=== PATIENT | male | born 1945 | race Caucasian/White ===

== ENCOUNTER 2018-12-25 11:27 | Outpatient (CLI) | payer MEDICARE, SELFPAY ==
[2018-12-25 13:46] LABS: TSH 2.74 uIU/mL (0.358-3.74); Vitamin B12 394 pg/mL (193-986)
== END 2018-12-25 11:47 ==
PROVIDERS: PCP Emergency Medicine; Visit Provider Emergency Medicine
DX: E03.9 Hypothyroidism, unspecified (principal); G62.9 Polyneuropathy, unspecified
CPT/HCPCS: 36415; 82607; 84443

== ENCOUNTER → 2019-03-13 09:51 | Outpatient (BNVA) | payer MEDICARE, OTHER, SELFPAY | PROVIDERS: PCP Emergency Medicine; Referring Provider Emergency Medicine; Visit Provider Physical Therapy Assistant | DX: Z12.11 Encounter for screening for malignant neoplasm of colon (principal); Z86.010 Personal history of colon polyps; Z80.0 Family history of malignant neoplasm of digestive organs; Z95.5 Presence of coronary angioplasty implant and graft ==

== ENCOUNTER 2019-07-08 09:03 | Outpatient (CLI) | payer MEDICARE, OTHER, SELFPAY ==
[2019-07-08 14:01] LABS: Anion Gap 6.3 mmol/L (3-11); BUN 25 mg/dL (7-18); CO2 31.7 mmol/L (21.0-32.0); CREATININE 1.58 mg/dL (0.70-1.30); Calcium 9.1 mg/dL (8.5-10.1); Calculated LDL 62 mg/dL; Chloride 107 mmol/L (98-107); Cholesterol 120 mg/dL (50-200); Estimated GFR 43.09 (mL/min/1.73m2); Glucose 82 mg/dL (70-100); HDL Cholesterol 34 mg/dL (40-60); Potassium 4.4 mmol/L (3.5-5.1); Sodium 145 mmol/L (136-145); Triglyceride 123 mg/dL (30-150)
== END 2019-07-08 09:23 ==
PROVIDERS: PCP Emergency Medicine; Visit Provider Emergency Medicine
DX: I10 Essential (primary) hypertension (principal)
CPT/HCPCS: 36415; 80048; 80061

== ENCOUNTER 2020-06-30 12:19 | Outpatient (REF) | payer MEDICARE, OTHER, SELFPAY ==
[2020-06-30 22:22] LABS: Anion Gap 7.2 mmol/L (3-11); BUN 31 mg/dL (7-18); CO2 28.8 mmol/L (21.0-32.0); CREATININE 1.52 mg/dL (0.70-1.30); Calcium 9.1 mg/dL (8.5-10.1); Calculated LDL 74 mg/dL (<100); Chloride 107 mmol/L (98-107); Cholesterol 127 mg/dL (<200); Estimated GFR 44.93 (mL/min/1.73m2); Glucose 91 mg/dL (74-106); HDL Cholesterol 35 mg/dL (40-60); Potassium 4.1 mmol/L (3.5-5.1); Sodium 143 mmol/L (136-145); Triglyceride 93 mg/dL (<150)
== END 2020-06-30 12:39 ==
LOC: LBN 12:19
PROVIDERS: PCP Emergency Medicine; Visit Provider Emergency Medicine
DX: I10 Essential (primary) hypertension (principal)
CPT/HCPCS: 80048; 80061

== ENCOUNTER 2021-07-27 11:03 | Outpatient (REF) | payer MEDICARE, OTHER, SELFPAY ==
--- NOTE | 2021-07-27 10:00 | SKI_PTH ---
PATIENT: Александр [place] LOC: N U#:[id number] AGE/SX: 76/M ROOM: RE07/27/[address]: Ben Agudelo DO : 1945 BED: DIS: 07/27/2021 SPEC #: [id number] RECD: 07/27/21 18:09 STATUS: MECHELLE REAmalia #: [id number] BRONWYN: 07/27/21 10:[address]: Ben Agudelo DEPT: Surgical Specimen RECD BY: Maria Teresa Zheng Tissues: 1 - SKIN BIOPSY(SHAVE/PUNCH) Procedures: SKIN LEVEL 4 Comments: [id number]
[2021-07-27 19:30] LABS: Anion Gap 6.4 mmol/L (3-11); BUN 32 mg/dL (7-18); CO2 27.6 mmol/L (21.0-32.0); CREATININE 1.6 mg/dL (0.70-1.30); Calcium 8.7 mg/dL (8.5-10.1); Calculated LDL 74 mg/dL (<100); Chloride 107 mmol/L (98-107); Cholesterol 127 mg/dL (<200); Estimated GFR 42.24 (mL/min/1.73m2); Glucose 92 mg/dL (74-106); HDL Cholesterol 35 mg/dL (40-60); Potassium 4.2 mmol/L (3.5-5.1); Sodium 141 mmol/L (136-145); Triglyceride 92 mg/dL (<150)
== END 2021-07-27 11:04 | disposition home or self-care (01) ==
LOC: LBN 11:03
PROVIDERS: PCP Emergency Medicine; Visit Provider Emergency Medicine
DX: L82.1 Other seborrheic keratosis; I10 Essential (primary) hypertension; I25.10 Atherosclerotic heart disease of native coronary artery without angina pectoris; Z98.61 Coronary angioplasty status
CPT/HCPCS: 80048; 80061; 88305

== ENCOUNTER 2022-08-18 01:50 | Outpatient (CLI) | payer MEDICARE, SELFPAY ==
[2022-08-18 16:00] LABS: Abs Immature Grans 0.02 10^3/uL (0.0-0.06); Absolute Basophil Count 0.06 10^3/uL (0.0-0.2); Absolute Eosinophil Count 0.33 10^3/uL (0.0-0.7); Absolute Lymphocyte Count 2.02 10^3/uL (1.2-3.4); Absolute Monocyte Count 0.72 10^3/uL (0.1-0.8); Absolute Neutrophil Count 5.13 10^3/uL (1.2-6.7); Basophils % 0.7; HCT 39.5 % (40.0-50.0); HGB 13.5 g/dL (13.5-17.5); Immature Grans % 0.2; Lymphocytes % 24.4; MCH 30.8 pg (27.0-33.0); MCHC 34.2 % (32.0-36.0); MCV 90 fL (80-95); MPV 9.3 fL (8.0-11.0); Monocytes % 8.7; Platelet Count 161 10^3/uL (130-400); RBC 4.39 10^6/uL (4.36-5.78); RDW 12.5 % (11.8-14.1); RDW-SD 41.1 fL; WBC 8.28 10^3/uL (4.4-10.8)
[2022-08-18 16:52] LABS: COMMENT (LAB VIEW ONLY) 152.27 mg/dL
[2022-08-18 16:59] LABS: ALT 23 U/L (16-63); AST 27 U/L (15-37); Albumin 3.8 g/dL (3.4-5.0); Alkaline Phosphatase 87 U/L (46-116); Anion Gap 6.3 mmol/L (3-11); BUN 49 mg/dL (7-18); Bilirubin, Total 0.5 mg/dL (0.2-1.0); CO2 29.7 mmol/L (21.0-32.0); CREATININE 1.8 mg/dL (0.70-1.30); Calcium 8.9 mg/dL (8.5-10.1); Chloride 106 mmol/L (98-107); Estimated GFR 38.29 (mL/min/1.73m2); Glucose 95 mg/dL (74-106); Magnesium 2.2 mg/dL (1.8-2.4); PHOSPHORUS 3.5 mg/dL (2.6-4.7); Sodium 142 mmol/L (136-145); Total Protein 7.1 g/dL (6.4-8.2)
[2022-08-18 17:03] LABS: Bilirubin Negative (Negative); Blood Negative (Negative); Clarity Clear (Clear); Glucose Negative (Negative); Ketones Negative (Negative); Leukocyte Esterase Negative (Negative); Nitrite Negative (Negative); Specific Gravity >= 1.030 (1.005-1.025); Urobilinogen 0.2 EU/dL (Up TO 0.2)
[2022-08-18 17:35] LABS: Vitamin D 25 Total 54.3 ng/mL (30-100)
[2022-08-21 08:48] LABS: Parathyroid Hormone,Intact 37 pg/mL (19-88)
== END 2022-08-18 01:51 | disposition home or self-care (01) ==
LOC: LBO 01:51
PROVIDERS: PCP Family Medicine; Visit Provider Family Medicine
DX: E11.9 Type 2 diabetes mellitus without complications (principal); N18.30 Chronic kidney disease, stage 3 unspecified; R30.0 Dysuria
CPT/HCPCS: 36415; 80053; 82306; 81003; 82043; 82570; 83735; 83970; 84100; 85025

== ENCOUNTER 2022-08-24 01:20 | Outpatient (CLI) | payer MEDICARE, SELFPAY ==
--- NOTE | 2022-08-24 06:45 | DI.NM_ITS ---
APPROVED REPORT Exam: Exercise Treadmill Patient Location: Out-Patient Room/Bed: Stress Nurse: Brittany Llanos RN Ordering Provider:SAL LINK MD, Contact Number: [phone] BMI: 25.79 Baseline Rhythm: Sinus Bradycardia Indications: LIGHTHEADED AFTER EXERCISE, CORONARY ARTERY DISEASE Medical History Medical History: ASCVD s/p stent placement, HTN, HLD, COVID Cardiac Medications: Nitro SL, Losartan, Hydrochlorothiazide, Atorvastatin, Aspirin, Allergies: Lisinopril, Contrast Media Cardiac Risk Factors: HTN, Hyperlipidemia, CVD, FHX of CAD Previous Cardiac Procedures: PCI w/ stent (2011) Pretest Chest Pain Characteristics: No chest pain Exercise History: Physically active Physical Disabilities: None Lung Sounds: Clear to auscultation Heart Sounds: Regular Stress Test Details Test: Exercise stress testing was performed using a Александр protocol. Nuclear Acquisition: Rest Tc-99m/Stress Tc-99m 1 day Rest Isotope: Tc-99m Sestamibi. Dose: 9.0 Date: 08/24/2022 Injection Time: 0935 Stress Isotope: Tc-99m Sestamibi. Dose: 30.0 Date: 08/24/2022 Injection Time: 1100 HR Resting HR Supine: 52 bpm Max Heart Rate (APMHR): 143.528513 bpm Resting HR Standin bpm Target HR (85% APMHR): 121.906983 bpm Max HR Achieved: 150 bpm % of APMHR: 104.90 Recovery HR: 67 bpm HR response to stress: Normal HR response to stress BP Resting BP Supine: 170/80 mmHg Resting BP Standin/78 mmHg Max BP: 210/70 mmHg Recovery BP: 138/70 mmHg BP response to stress: Normal blood pressure response to stress. ECG Resting ECG: Sinus Bradycardia Ectopy: none Stress ECG: Sinus Tachycardia ST Change: No significant ST segment changes noted Arrhythmia: PACs, PVC couplet Recovery ECG: Sinus Rhythm Recovery ST Change: No significant ST segment changes noted Recovery Arrhythmia: PACs, PVCs, PVC triplet Clinical Reason for Termination: Fatigue Stress Symptoms: General Fatigue Exercise duration: 09 min36 sec Highest Stage Reached: Stage 4: 4.2 mph at 16% grade. Exercise capacity: 11.04 METs Skinner Treadmill Score: 10 Rate Pressure Product: [id number] Stress ECG Conclusion 1. The resting electrocardiogram was within normal limits 2. Patient exercised on the Александр protocol and completed a workload of 11.04 METS, limited by fatigue 3. Normal heart rate and blood pressure response to exercise. Patient achieved 100% of predicted hea rt rate for age 4. There was no electrocardiographic evidence of myocardial ischemia 5. There were no significant dysrhythmias 6. See MPI report Skinner Treadmill Score is 10 which is Low risk. Stress Test Summary STAGE Time (mins) Speed (mph) Grade (%) HR BP SpO2 SYMPTOMS METS Supine 52 170/80 Standing 53 160/78 96 1 3 1.7 10 102 180/74 96 4.5 2 6 2.5 12 125 190/70 7 3 9 3.4 14 136 196/80 95 10 1 min recovery 124 210/70 3 min recovery 82 162/70 6 min recovery 67 138/70 Александр did not endorse lightheadedness during or after treadmill test. MPI Conclusion Normal myocardial perfusion without evidence of ischemia or prior infarction EF is 58%, wall motion is normal Radiologist Interpretation Radiologist agrees with Coagulator's Interpretation. Radiologist Interpretation by: Gonzlao Jacob MD Interpretation Date/Time: 08/24/2022 16:03:44
== END 2022-08-24 01:40 ==
LOC: DI 01:21
PROVIDERS: PCP Family Medicine; Visit Provider Family Medicine
DX: I25.10 Atherosclerotic heart disease of native coronary artery without angina pectoris (principal); Z98.61 Coronary angioplasty status
CPT/HCPCS: 78452; 93016; 93018; 93017

== ENCOUNTER 2023-02-21 10:27 | Outpatient (CLI) | payer MEDICARE, SELFPAY ==
[2023-02-21 12:42] LABS: Abs Immature Grans 0.01 10^3/uL (0.0-0.06); Absolute Basophil Count 0.04 10^3/uL (0.0-0.2); Absolute Eosinophil Count 0.13 10^3/uL (0.0-0.7); Absolute Lymphocyte Count 1.52 10^3/uL (1.2-3.4); Absolute Monocyte Count 0.46 10^3/uL (0.1-0.8); Absolute Neutrophil Count 3.78 10^3/uL (1.2-6.7); Basophils % 0.7; Eosinophils % 2.2; HCT 39.6 % (40.0-50.0); HGB 13.6 g/dL (13.5-17.5); Immature Grans % 0.2; Lymphocytes % 25.6; MCH 30.8 pg (27.0-33.0); MCHC 34.3 % (32.0-36.0); MCV 90 fL (80-95); Monocytes % 7.7; Neutrophils % 63.6; Platelet Count 154 10^3/uL (130-400); RBC 4.41 10^6/uL (4.36-5.78); RDW 12.1 % (11.8-14.1); RDW-SD 39.9 fL; WBC 5.94 10^3/uL (4.4-10.8)
[2023-02-21 12:57] LABS: ALT 23 U/L (16-63); AST 23 U/L (15-37); Albumin 3.6 g/dL (3.4-5.0); Alkaline Phosphatase 83 U/L (46-116); Anion Gap 5.9 mmol/L (3-11); BUN 42 mg/dL (7-18); Bilirubin, Total 0.7 mg/dL (0.2-1.0); CO2 29.1 mmol/L (21.0-32.0); CREATININE 1.8 mg/dL (0.70-1.30); Calcium 9.5 mg/dL (8.5-10.1); Chloride 105 mmol/L (98-107); Estimated GFR 38.29 (mL/min/1.73m2); Glucose 93 mg/dL (74-106); Magnesium 1.9 mg/dL (1.8-2.4); Potassium 4.1 mmol/L (3.5-5.1); Sodium 140 mmol/L (136-145); Total Protein 6.9 g/dL (6.4-8.2)
[2023-02-21 13:27] LABS: Ferritin 122 ng/mL (26-388)
[2023-02-21 14:21] LABS: Vitamin D 25 Total 56.8 ng/mL (30-100)
[2023-02-21 22:14] LABS: Parathyroid Hormone,Intact 23 pg/mL (19-88)
[2023-02-26 14:31] LABS: 1,25-Dihydroxyvitamin D 13 pg/mL (18-64)
== END 2023-02-21 10:28 | disposition home or self-care (01) ==
LOC: LOS 10:28
PROVIDERS: PCP Family Medicine; Visit Provider Family Medicine
DX: N18.32 Chronic kidney disease, stage 3b (principal); Z00.00 Encounter for general adult medical examination without abnormal findings; I10 Essential (primary) hypertension
CPT/HCPCS: 36415; 80048; 80053; 82306; 82652; 82728; 83735; 83970; 84100; 85025

== ENCOUNTER 2023-08-28 10:03 | Outpatient (CLI) | payer MEDICARE, SELFPAY ==
[2023-08-28 10:04] LABS: Anion Gap 4.3 mmol/L (3-11); BUN 41 mg/dL (7-18); CO2 30.7 mmol/L (21.0-32.0); CREATININE 1.8 mg/dL (0.70-1.30); Calcium 9.6 mg/dL (8.5-10.1); Chloride 104 mmol/L (98-107); Estimated GFR 38.05 (mL/min/1.73m2); Glucose 93 mg/dL (74-106); Potassium 3.9 mmol/L (3.5-5.1); Sodium 139 mmol/L (136-145)
--- OUTSIDE RECORDS SUMMARY | 2023-08-28 10:05 | XMS_ITS | Continuity of Care Document ---
Author Name Unknown Organization [facility] Address [address] [place] [address] Care Team Providers Care Neurosurgical Nurse Practitioner Name Role Phone Ben Agudelo Primary Care Physician Encounter [facility] Date(s): 12/04/22 - 12/04/[address] [id number] Discharge Disposition: Home or Self Care Attending Physician: Devendra Abbasi MD Admitting Physician: Devendra Abbasi MD Referring Physician: Ben Agudelo DO Allergies, Adverse Reactions, Alerts Substance Reaction Severity Status HOUSE DUST Unknown Active POLLEN EXTRACTS Unknown Active lisinopril Unknown Active iodinated radiocontrast dyes Unknown Active Functional Status 12/04/22 ADLs Independent Family Member Travel History No recent t ravel Recent Travel History No recent travel Other exposure to Infectious Disease Non e 11/28/22 Living Situation Home independently Medications aspirin 81 mg oral capsule 0 Refill(s) Start Date: 11/27/22 Status: Ordered atorvastatin 20 mg oral tablet 20 mg = 1 tab, Oral, Daily, # 30 tab, 0 Refill(s) Start Date: 11/27/22 Status: Ordered hydroCHLOROthiazide 25 mg oral tablet 25 mg = 1 tab, Oral, BID, 0 Refill(s) Start Date: 11/27/22 Status: Ordered losartan 100 mg oral tablet 100 mg = 1 tab, Oral, Daily, # 30 tab, 0 Refill(s) Start Date: 11/27/22 Status: Ordered multivitamin adult, oral tablet 1 tab, Oral, Daily, # 30 tab, 0 Refill(s) Start Date: 11/29/22 Status: Ordered nitroglycerin 0.4 mg sublingual tablet 0.4 mg = 1 tab, SL, every 5 min, PRN as needed for chest pain, # 100 tab, 0 Refill(s) Start Date: 11/27/22 Status: Ordered Vitamin D3 0 Refill(s) Start Date: 11/27/22 Status: Ordered Problem List Condition Confirmation Course Effective Dates Status H ealth Status Informant BPH - benign prostatic hyperplasia Confirmed Active Chronic kidney disease stage 3 Confirmed Active Conductive hearing loss Confirmed Active Coronary arteriosclerosis after percutaneous coronary angioplasty Confirmed Active Hyperlipidemia Confirmed Active Hypertension Confirmed Active Neuropathy Confirmed Active Sensorineural hearing loss, bilateral Confirmed Active Procedures Procedure Date Related Diagnosis Body Site Status Colonoscopy 07/23/19 Completed Stent placement 03/07/12 Completed EGD (esophagogastroduodenosc opy) gastric outlet reduction 11/20/07 Complet ed Bunionectomy Completed Vital Signs Most recent to oldest [Reference Range]: 1 2 3 Temperature Oral [35.8-37.3 Deg C] 36.7 Deg C (12/04/22 11:59 AM) Temperature Temporal Artery [36-38 Deg C] 36.6 Deg C (12/04/22 3:00 PM) Temperature Temporal Artery (DegF) [97.3-100 Deg F] 97.88 Deg F (12/04/22 3:00 PM) Peripheral Pulse Rate [60-100 bpm] 46 bpm *LOW* (12/04/22 3:00 PM) 42 bpm *LOW* (12/04/22 2:45 PM) 42 bpm *LOW* (12/04/22 2:40 PM) Heart Rate Monitored [60-100 bpm] 44 bpm *LOW* (12/04/22 3:00 PM) 43 bpm *LOW* (12/04/22 2:45 PM) 45 bpm *LOW* (12/04/22 2:40 PM) Respiratory Rate [12-24 br/min] 15 br/min (12/04/22 3:00 PM) 16 br/min (12/04/22 2:45 PM) 16 br/min (12/04/22 2:40 PM) Blood Pressure [90-140/60-90 mmHg] 124/66mmHg (12/04/22 3:00 PM) 110/64mmHg (12/04/22 2:45 PM) 108/60mmHg (12/04/22 2:40 PM) Mean Arterial Pressure, Cuff [65-140 mmHg] 85 mmHg (12/04/22 3:00 PM) 79 mmHg (12/04/22 2:45 PM) 76 mmHg (12/04/22 2:40 PM) Weight 69.300 kg (12/04/22 11:59 AM) Weight Dosing 69.300 kg (12/04/22 11:59 AM) Height 163.000 cm (12/04/22 11:59 AM) Height/Length Dosing 163.000 cm (12/04/22 11:59 AM) Body Mass Index 26.080 kg/m2 (12/04/22 11:59 AM) Social History Social History Type Response Smoking Status Smoking tobacco use: Never tobacco user;Never entered on: 11/27/22 Sex Male Hospital Discharge Instructions Patient Education 12/04/2022 13:48:10 ss colonoscopy discharge instructions COLONOSCOPY / SIGMOIDOSCOPY Following day: Return to full activity, including work. Diet: Eat and drink normally, unless instructed otherwise. Treatment for common after affects: Mild abdominal pain, bloating, or excessive gas: Rest, eat lightly and use a heating pad. Symptoms to watch for and report to your physician: SEVERE abdominal pain or bloating. Fever within 24 hours after procedure. A large amount of rectal bleeding. (A small amount of blood from the rectum is not serious, especially if hemorrhoids are present.) If you have had a Colonoscopy: Do not attempt to drive a vehicle or operate power equipment of any kind for at least 24 hours after discharge from the hospital. Do not consume alcoholic beverages or other mood-altering drugs on the day of surgery. Mild irritation at needle site: Apply warm, moist pack to area for 20 minutes four times a day for 2-3 days. Call physician if persistent redness and/or drainage at needle site. In the event of any problems after surgery, do not hesitate to contact your doctor, [facility] , or the Emergency Room at [phone]. Diagnosis: No polyps seen today. Repeat in 5 years this is up to you and your primary provider Doctor: Jin Follow Up Appointment: 5 years Discharge instructions * Tianna Richardson: PERFORM Event Display: Discharge Instructions Authored Date: [id number] LEON SINGER :1945 Age:77 years Sex:Male Visit Date:12/04/2022 Primary Care Physician: Ben Agudelo DO Hospital Discharge Instructions We would like to thank you for allowing us to assist you with your healthcare needs. The following includes patient education materials and information regarding your injury/illness. After you leave the hospital, you may get your health information including your test results, physician notes and discharge information by accessing your Patient Portal. Your Summary Your Care Team Admitting Physician - Jin BILLY, Devendra Truong MD Attending Physician - Devendra Abbasi MD Primary Care Physician - Ben Agudelo DO Referring Physician - Ben Agudelo DO Discharge Vitals Temperature??(Oral) 98.1 ??F (36.7 ??C) Heart Rate??(Monitored) 50 Respiratory Rate?? 20 Blood Pressure?? 128/63?? Height?? 64.17 in (163.000 cm) Weight?? 152.81 lb (69.300 kg) BMI?? 26.080 Education Materials COLONOSCOPY / SIGMOIDOSCOPY ? Following day: Return to full activity, including work. Diet: Eat and drink normally, unless instructed otherwise. ? Treatment for common after affects: Mild abdominal pain, bloating, or excessive gas: Rest, eat lightly and use a heating pad. ? Symptoms to watch for and report to your physician: SEVERE abdominal pain or bloating. ? Fever within 24 hours after procedure. ? A large amount of rectal bleeding. (A small amount of blood from the rectum is not serious, especially if hemorrhoids are present.) ? If you have had a Colonoscopy: Do not attempt to drive a vehicle or operate power equipment of any kind for at least 24 hours after discharge from the hospital. ? Do not consume alcoholic beverages or other mood-altering drugs on the day of surgery. ? Mild irritation at needle site: Apply warm, moist pack to area for 20 minutes four times a day for 2-3 days. ? Call physician if persistent redness and/or drainage at needle site. ? In the event of any problems after surgery, do not hesitate to contact your doctor, [facility] , or the Emergency Room at [phone]. Diagnosis: No polyps seen today. Repeat in 5 years this is up to you and your primary provider Doctor: Jin Follow Up Appointment: 5 years Patient Name:ENMANUELLEON POON I have received this information and my questions have been answered. Patient/Phone Technician Name: Patient/Phone Technician Signature: Relationship to Patient: Witness Name/Signature: Date: Electronically Signed on: 12/04/2022 14:50 ESTSigned by:PAF History and physical note * Jin WVDevendra Ames MD: PERFORM Event Display: History and Physical Authored Date: [id number] LEON SINGER :1945 Age:77 years Sex:Male Visit Date:12/04/2022 Primary Care Physician: Ben Agudelo DO History of Present Illness 77-year-old male seen for follow-up colonoscopy.?? The patient's had prior colon polyps and his mother of colon cancer. Review of Systems No history of chest pain, pressure,??he has had a previous??stent placed.?? No cough, sputum production or wheezing.?? No history of abdominal pain or rectal bleeding. Physical Exam Vitals & Measurements T:??36.7?C ??(Oral)?? HR:??50??(Monitored)?? RR:??20?? BP:??128/63?? SpO2:??99%?? HT:??163.000??cm?? WT:??69.300??kg?? BMI:??26.080?? O2 Therapy:??Room air?? Skin warm and dry, neck supple there is no cervical adenopathy. ??Lungs clear, heart regular. ??Abdomen soft. Assessment/Plan Ordered: Valium, 2.5 mg, IV Push, Soln, every 2 min for 10 times, PRN sedation, First Dose: 12/04/22 13:16:00 EST, Stop Date: Limited # of times, Physician Stop, Routine fentaNYL, 25 mcg = 0.5 mL, IV Push, Soln, every 2 min for 12 times, PRN sedation, First Dose: 12/04/22 13:16:00 EST, Stop Date: Limited # of times, Physician Stop, Routine flumazenil, 0.2 mg, IV Push, Soln, As Directed for 10 times, PRN sedation, Administer over: 15 seconds, First Dose: 12/04/22 13:16:00 EST, Stop Date: Limited # of times, Physician Stop, Routine Lactated Ringers Injection 500 mL, Total Volume (mL): 500, 500 mL, Soln, IV, 30 mL/hr, Start Date: 12/04/22 11:55:00 EST, Populate Charting Weight From Order lidocaine 1% injectable solution, 5 mg 0.5 mL, Intradermal, Soln, As Directed, PRN other (see comment), First Dose: 12/04/22 11:55:00 EST, Routine Versed, 1 mg = 1 mL, IV Push, Soln, every 2 min for 10 times, PRN sedation, First Dose: 12/04/22 13:16:00 EST, Stop Date: Limited # of times, Physician Stop, Routine naloxone, 0.08 mg = 0.2 mL, IV Push, Soln, every 2 min for 10 times, PRN sedation, First Dose: 12/04/22 13:16:00 EST, Stop Date: Limited # of times, Physician Stop, Routine Communication Order, 12/04/22 13:16:00 EST, Nursing to administer and doses via IV push per verbal instruction from MD at bedside immediately prior and during conscious sedation procedure. NPO, 12/04/22 11:55:00 EST, Constant Indicator Obtain Surgical Consent, 12/04/22 11:55:00 EST, colonoscopy Oxygen Therapy, Stop date 12/04/22 13:16:00 EST, Simple Mask to maintain SpO2 of 90% or greater Surgical Pathology [facility], AP Specimen, Routine Collect, 12/04/22 13:16:00 EST, every morning, Lab Collect, Print Label Vital Signs, 12/04/22 13:16:00 EST, every 5 min, Every 5 minutes with cardiac and respiratory assessment To proceed with a follow-up colonoscopy. ??We discussed the procedure, indications and risk. ??Consent is signed and on the chart. Problem List/Past Medical History Ongoing BPH - benign prostatic hyperplasia Chronic kidney disease stage 3 Conductive hearing loss Coronary arteriosclerosis after percutaneous coronary angioplasty Hyperlipidemia Hypertension Neuropathy Sensorineural hearing loss, bilateral Historical No qualifying data Procedure/Surgical History ???Colonoscopy (07/24/2019)???Stent placement (03/08/2012)???EGD (esophagogastroduodenoscopy) gastric outlet reduction (11/21/2007)???Bunionectomy Medications Inpatient fentaNYL, 25 mcg= 0.5 mL, IV Push, every 2 min, PRN flumazenil, 0.2 mg, IV Push, As Directed, PRN Lactated Ringers Injection 500 mL, 500 mL, IV lidocaine 1% injectable solution, 5 mg= 0.5 mL, Intradermal, As Directed, PRN naloxone, 0.08 mg= 0.2 mL, IV Push, every 2 min, PRN Valium, 2.5 mg, IV Push, every 2 min, PRN Versed, 1 mg= 1 mL, IV Push, every 2 min, PRN Home aspirin 81 mg oral capsule atorvastatin 20 mg oral tablet, 20 mg= 1 tab, Oral, Daily hydroCHLOROthiazide 25 mg oral tablet, 25 mg= 1 tab, Oral, BID losartan 100 mg oral tablet, 100 mg= 1 tab, Oral, Daily multivitamin adult, oral tablet, 1 tab, Oral, Daily nitroglycerin 0.4 mg sublingual tablet, 0.4 mg= 1 tab, SL, every 5 min, PRN Vitamin D3 Allergies HOUSE DUST POLLEN EXTRACTS iodinated radiocontrast dyes lisinopril Social History Alcohol Current, Wine, 1-2 times per month Electronic Cigarette/Vaping Electronic Cigarette Use: Never. Substance Use Never Tobacco Never tobacco user Tobacco Use:. Never Smokeless Tobacco use:. Family History Cardiovascular disease: Father. Diabetes mellitus: Father. Hyperlipidemia: Father. Hypertension: Father. Stroke: Mother. Electronically Signed on 12/04/22 02:09 PM Jin [facility] CAROLINADevendra MD * Kala Sanchez: PERFORM Event Display: History and Physical Authored Date: [id number] LEON SINGER :1945 Age:77 years Sex:Male Primary Care Physician: Ben Agudelo DO History of colon polyps. Family history of colon cancer. Previous colonoscopies and path reports have been scanned into [employer] Electronically Signed on 11/28/22 01:19 PM Kala Sanchez Patient Care team information Care Team Personnel Name: Ben Agudelo DO Position: No Access Member Role: Primary Care Physician Address: Address: [facility] [address] [place] [id number]- Care Team Related Persons Name: PORTIA SINGER
== END 2023-08-28 10:04 | disposition home or self-care (01) ==
LOC: LBO 10:04
PROVIDERS: PCP Family Medicine; Visit Provider Family Medicine
DX: I10 Essential (primary) hypertension (principal); N18.32 Chronic kidney disease, stage 3b
CPT/HCPCS: 36415; 80048

== ENCOUNTER 2024-03-18 05:14 | Outpatient (CLI) | payer MEDICARE, SELFPAY ==
[2024-03-18 09:11] LABS: ALT 26 U/L (16-63); AST 23 U/L (15-37); Albumin 3.8 g/dL (3.4-5.0); Alkaline Phosphatase 82 U/L (46-116); Anion Gap 6.6 mmol/L (3-11); BUN 45 mg/dL (7-18); Bilirubin, Total 0.7 mg/dL (0.2-1.0); CO2 31.4 mmol/L (21.0-32.0); CREATININE 1.9 mg/dL (0.70-1.30); Calcium 9.4 mg/dL (8.5-10.1); Chloride 106 mmol/L (98-107); Estimated GFR 35.66 (mL/min/1.73m2); Glucose 75 mg/dL (74-106); PHOSPHORUS 3.6 mg/dL (2.6-4.7); Potassium 4.4 mmol/L (3.5-5.1); Sodium 144 mmol/L (136-145); Total Protein 7.2 g/dL (6.4-8.2)
[2024-03-18 09:53] LABS: Ferritin 97 ng/mL (26-388); Vitamin D 25 Total 65.6 ng/mL (30-100)
[2024-03-18 20:25] LABS: Parathyroid Hormone,Intact 33 pg/mL (19-88)
[2024-03-19 18:54] LABS: Cystatin C, S 1.88 mg/L; eGFR by Cystatin C 31 mL/min/BSA (>60)
== END 2024-03-18 05:15 | disposition home or self-care (01) ==
PROVIDERS: PCP Family Medicine; Visit Provider Family Medicine
DX: N18.32 Chronic kidney disease, stage 3b (principal)
CPT/HCPCS: 36415; 80053; 82306; 82610; 82728; 83970; 84100; 84550

== ENCOUNTER 2024-04-07 15:25 | Outpatient (CLI) | payer MEDICARE, SELFPAY ==
[2024-04-07 14:54] LABS: Abs Immature Grans 0.01 10^3/uL (0.0-0.06); Absolute Basophil Count 0.04 10^3/uL (0.0-0.2); Absolute Monocyte Count 0.58 10^3/uL (0.1-0.8); Basophils % 0.6 %; HCT 37.3 % (40.0-50.0); HGB 12.7 g/dL (13.5-17.5); Immature Grans % 0.2 %; Lymphocytes % 24.1 %; MCH 30.8 pg (27.0-33.0); MCV 90 fL (80-95); MPV 8.6 fL (8.0-11.0); Monocytes % 8.7 %; Neutrophils % 63.4 %; Platelet Count 128 10^3/uL (130-400); RBC 4.13 10^6/uL (4.36-5.78); RDW 12.3 % (11.8-14.1); RDW-SD 40.4 fL; WBC 6.63 10^3/uL (4.4-10.8)
[2024-04-07 15:37] LABS: ALT 25 U/L (16-63); AST 23 U/L (15-37); Albumin 3.5 g/dL (3.4-5.0); Alkaline Phosphatase 71 U/L (46-116); Anion Gap 7.7 mmol/L (3-11); BUN 36 mg/dL (7-18); Bilirubin, Total 0.66 mg/dL (0.2-1.0); CO2 26.3 mmol/L (21.0-32.0); CREATININE 1.9 mg/dL (0.70-1.30); Calcium 8.8 mg/dL (8.5-10.1); Chloride 109 mmol/L (98-107); Estimated GFR 35.66 (mL/min/1.73m2); Glucose 115 mg/dL (74-106); Potassium 4.3 mmol/L (3.5-5.1); Sodium 143 mmol/L (136-145); Total Protein 6.5 g/dL (6.4-8.2); Uric Acid 6.3 mg/dL (3.5-7.2)
[2024-04-07 16:39] LABS: COMMENT (LAB VIEW ONLY) 209.78 mg/dL; PROTEIN 13.3 mg/dL; Prot/Crea Ur Ratio 0.06
== END 2024-04-07 15:26 | disposition home or self-care (01) ==
LOC: LBO 15:26
PROVIDERS: PCP Family Medicine; Visit Provider Family Medicine
DX: M1A.9XX0 Chronic gout, unspecified, without tophus (tophi) (principal); E79.0 Hyperuricemia without signs of inflammatory arthritis and tophaceous disease; N18.32 Chronic kidney disease, stage 3b
CPT/HCPCS: 36415; 80053; 82565; 84156; 84550; 85025

== ENCOUNTER 2024-09-05 12:24 | Outpatient (CLI) | payer MEDICARE, SELFPAY ==
[2024-09-05 13:02] LABS: Abs Immature Grans 0.02 10^3/uL (0.0-0.06); Absolute Basophil Count 0.05 10^3/uL (0.0-0.2); Absolute Eosinophil Count 0.11 10^3/uL (0.0-0.7); Absolute Lymphocyte Count 1.72 10^3/uL (1.2-3.4); Absolute Neutrophil Count 4.28 10^3/uL (1.2-6.7); Basophils % 0.7 %; Eosinophils % 1.6 %; HCT 40.1 % (40.0-50.0); HGB 13.4 g/dL (13.5-17.5); Immature Grans % 0.3 %; Lymphocytes % 25.4 %; MCH 30.9 pg (27.0-33.0); MCHC 33.4 % (32.0-36.0); MCV 93 fL (80-95); MPV 9.2 fL (8.0-11.0); Monocytes % 8.8 %; Neutrophils % 63.2 %; Platelet Count 145 10^3/uL (130-400); RBC 4.33 10^6/uL (4.36-5.78); RDW-SD 41.1 fL; WBC 6.78 10^3/uL (4.4-10.8)
[2024-09-05 13:25] LABS: Iron 60 ug/dL (65-175); Total Iron Binding Capacity 244 ug/dL (250-450); Transferrin Sat 25 % (20-55)
[2024-09-05 13:38] LABS: Anion Gap 8.1 mmol/L (3-11); BUN 42 mg/dL (7-18); CO2 29.9 mmol/L (21.0-32.0); CREATININE 1.9 mg/dL (0.70-1.30); Calcium 9.8 mg/dL (8.5-10.1); Chloride 109 mmol/L (98-107); Estimated GFR 35.44 (mL/min/1.73m2); Ferritin 140 ng/mL (26-388); Glucose 105 mg/dL (74-106); Potassium 4.2 mmol/L (3.5-5.1); Sodium 147 mmol/L (136-145)
[2024-09-07 14:34] LABS: Anaplasma phagocytophilum Ab <1:64 titer (<1:64)
== END 2024-09-05 12:25 | disposition home or self-care (01) ==
LOC: LBO 12:25
PROVIDERS: PCP Family Medicine; Visit Provider Family Medicine
DX: N18.32 Chronic kidney disease, stage 3b (principal); Z20.9 Contact with and (suspected) exposure to unspecified communicable disease; I10 Essential (primary) hypertension
CPT/HCPCS: 36415; 80048; 86666; 82728; 83540; 83550; 85025

== ENCOUNTER 2025-03-06 00:52 | Outpatient (CLI) | payer MEDICARE, SELFPAY ==
[2025-03-06 08:14] LABS: Abs Immature Grans 0.02 10^3/uL (0.0-0.06); Absolute Basophil Count 0.05 10^3/uL (0.0-0.2); Absolute Eosinophil Count 0.27 10^3/uL (0.0-0.7); Absolute Lymphocyte Count 1.47 10^3/uL (1.2-3.4); Absolute Monocyte Count 0.53 10^3/uL (0.1-0.8); Absolute Neutrophil Count 4.08 10^3/uL (1.2-6.7); Basophils % 0.8 %; Eosinophils % 4.2 %; HCT 39.2 % (40.0-50.0); HGB 13.1 g/dL (13.5-17.5); Immature Grans % 0.3 %; Lymphocytes % 22.9 %; MCH 30.2 pg (27.0-33.0); MCHC 33.4 % (32.0-36.0); MCV 90 fL (80-95); MPV 8.8 fL (8.0-11.0); Monocytes % 8.3 %; Neutrophils % 63.5 %; Platelet Count 148 10^3/uL (130-400); RBC 4.34 10^6/uL (4.36-5.78); RDW 12.1 % (11.8-14.1); RDW-SD 39.8 fL; WBC 6.42 10^3/uL (4.4-10.8)
[2025-03-06 08:53] LABS: COMMENT (LAB VIEW ONLY) 177.79 mg/dL; PROTEIN 9.8 mg/dL; Prot/Crea Ur Ratio 0.05
[2025-03-06 09:00] LABS: ALT 24 U/L (16-63); AST 29 U/L (15-37); Albumin 3.6 g/dL (3.4-5.0); Alkaline Phosphatase 83 U/L (46-116); Anion Gap 5.7 mmol/L (3-11); BUN 36 mg/dL (7-18); Bilirubin, Total 0.7 mg/dL (0.2-1.0); CO2 32.3 mmol/L (21.0-32.0); CREATININE 2.1 mg/dL (0.70-1.30); Calcium 9.2 mg/dL (8.5-10.1); Chloride 107 mmol/L (98-107); Estimated GFR 31.43 (mL/min/1.73m2); Glucose 99 mg/dL (74-106); PHOSPHORUS 2.9 mg/dL (2.6-4.7); Potassium 3.6 mmol/L (3.5-5.1); Sodium 145 mmol/L (136-145); Total Protein 6.9 g/dL (6.4-8.2); Uric Acid 7.6 mg/dL (3.5-7.2)
[2025-03-06 09:24] LABS: Ferritin 103 ng/mL (26-388)
[2025-03-06 18:53] LABS: Parathyroid Hormone,Intact 41 pg/mL (19-88)
== END 2025-03-06 00:53 | disposition home or self-care (01) ==
LOC: LBO 00:52
PROVIDERS: PCP Family Medicine; Visit Provider Family Medicine
DX: N18.32 Chronic kidney disease, stage 3b (principal); N18.30 Chronic kidney disease, stage 3 unspecified
CPT/HCPCS: 36415; 80053; 82565; 82728; 83970; 84100; 84156; 84550; 85025

== ENCOUNTER 2025-04-13 02:42 | Outpatient (CLI) | payer MEDICARE, SELFPAY ==
--- NOTE | 2025-04-13 07:00 | DI.US_ITS ---
Exam(s) US RENAL EXAM: US RENAL CLINICAL HISTORY: CKD, eval for hydronephrosis,n18.32,n18.9. TECHNIQUE: Rdz scale imaging and color doppler were used. COMPARISON: No exams were available for comparison FINDINGS: Right kidney: 8.5cm Echogenicity: Normal Hydronephrosis: No Cyst or mass: No Nephrolithiasis: No Left kidney: 9.3cm Echogenicity: Normal Hydronephrosis: No Cyst or mass: No Nephrolithiasis: No Bladder:Normal. Prevoid vol:174 cc Postvoid vol:2 cc Prostate volume 38 cc IMPRESSION: Mildly atrophic kidneys. No evidence of hydronephrosis. DATA REPOSITORY:
== END 2025-04-13 03:02 ==
LOC: DI 02:42
PROVIDERS: PCP Family Medicine; Visit Provider Family Medicine
DX: N18.32 Chronic kidney disease, stage 3b (principal)
CPT/HCPCS: 76770

== ENCOUNTER 2025-05-01 11:11 | Outpatient (CLI) | payer MEDICARE, SELFPAY ==
[2025-05-01 12:36] LABS: Anion Gap 7.1 mmol/L (3-11); BUN 44 mg/dL (7-18); CO2 28.9 mmol/L (21.0-32.0); Calcium 9.5 mg/dL (8.5-10.1); Chloride 105 mmol/L (98-107); Estimated GFR 29.72 (mL/min/1.73m2); Glucose 108 mg/dL (74-106); Potassium 4.2 mmol/L (3.5-5.1); Sodium 141 mmol/L (136-145)
== END 2025-05-01 11:12 | disposition home or self-care (01) ==
LOC: LBO 11:12
PROVIDERS: PCP Family Medicine; Visit Provider Family Medicine
DX: N18.32 Chronic kidney disease, stage 3b (principal); I10 Essential (primary) hypertension
CPT/HCPCS: 36415; 80048